=== PATIENT | female | born 1980 | race Caucasian/White ===

== ENCOUNTER 2019-04-18 08:52 | Emergency (ER) | payer BC, SELFPAY ==
[2019-04-18 09:02] VITALS: BMI 31.7
--- NOTE | 2019-04-18 09:04 | ED_ITS ---
Entered by Kathy Villasenor, acting as scribe for Ken Alfonso DO HPI - Head Injury General: Chief complaint: Head Injury Stated complaint: Knot on forehead Time Seen by Provider: 04/18/19 09:12 Source: patient and family Mode of arrival: ambulatory Limitations: no limitations History of Present Illness: HPI Narrative: 39 yo female presents with head injury to forehead. pt states this started 1 hour ago. when checking cows she when to shut the gate and it swung back and hit her in the head. pt has had nausea. pt states when this occurred she seen black and stumbled around and then could see. pt denies any other symptoms at this time. No loss conscious no neck pain no other injuries. 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) Mechanism of Injury: other (cow gate swung back and hit her in the head) Place: home Loss of Consciousness: no Location of injury: frontal Severity: moderate Radiation: none Associated symptoms: Reports nausea Review of Systems General: Reports: 10 or more systems reviewed and unremarkable except in HPI and below Const: Denies: fever, chills, body aches, change in appetite, fatigue or malaise ENMT: Denies: throat pain, ear pain, nasal discharge or nasal congestion Card: Denies: chest pain, edema, shortness of breath on exertion or shortness of breath when lying down Resp: Denies: shortness of breath, productive cough or non-productive cough GI: Reports: nausea : Denies: flank pain, difficulty urinating, painful urination, urinary frequency or urinary urgency Skin/Breast: Denies: rash or itching PFSH ED PFSH: Statuses (acute, chronic, etc) shown below reflect problem list status as previously entered and may not be historically accurate Surgical History History of tubal ligation (Acute) Social History Smoking and tobacco status: never smoked Female Reproductive History: Date of last menstrual period: 04/04/19 Physical Exam Const: COMMON NORMALS: average body habitus, oriented x3 and alert GENERAL APPEARANCE: cooperative, comfortable, well kempt and well developed NUTRITIONAL APPEARANCE: obese ORIENTATION/CONSCIOUSNESS: Yes awake, Yes oriented to person and Yes oriented to place HENMT: COMMON NORMALS: EAC's normal, TM's normal bilaterally and external nose normal HEAD & SCALP: other (Distinct hematoma on the forehead just above the right eyebrow. No laceration no abrasion) NOSE: external nose normal EXTERNAL AUDITORY CANAL: EAC's normal TYMPANIC MEMBRANE: TM's normal bilaterally MOUTH: oral and palatal mucosa normal, lip normal and tongue normal THROAT: posterior oropharynx normal and tonsils normal Eye: COMMON NORMALS: PERRL, EOMs intact bilaterally, conjunctivae normal and no scleral icterus CONJUNCTIVA: Yes conjunctivae normal PUPIL: Yes PERRL Neck/C-Spine: COMMON NORMALS: full ROM, no lymphadenopathy, supple, no meningeal signs and thyroid normal THYROID: thyroid normal and asymmetrical OTHER: C-spine cleared clinically at the bedside no pain with flexion extension rotation to the left or to the right no radicular symptoms. Lymph: LYMPHATIC: no lymphadenopathy noted Resp: COMMON NORMALS: normal respiratory effort, no retractions, no use of accessory muscles and clear to auscultation bilaterally AUSCULTATION: clear to auscultation bilaterally Cardio: COMMON NORMALS: regular rate and regular rhythm RATE: regular rate RHYTHM: regular rhythm HEART SOUNDS: no murmurs GI: COMMON NORMALS: normal to inspection, nondistended, normoactive bowel sounds, soft to palpation and no hepatosplenomegaly PALPATION: Yes soft and Yes no hepatosplenomegaly : COMMON NORMALS: Yes no CVA tenderness BLADDER/KIDNEY EXAM: Yes no CVA tenderness Back/Pelvis: COMMON NORMALS: no CVA tenderness LUMBAR SPINE/LOWER BACK: Yes normal to inspection Extremity: COMMON NORMALS: no clubbing, cyanosis or edema, no calf tenderness and no pedal edema Neuro: COMMON NORMALS: oriented x3 SENSORIUM/ORIENTATION: Yes alert, Yes oriented to person and Yes oriented to place MENINGEAL SIGNS: Yes no meningeal signs Psych: APPEARANCE: Yes well kempt Skin: COMMON NORMALS: no rashes or lesions noted and skin turgor normal GENERAL SKIN EXAM: no rashes or lesions noted and turgor normal Course ED course: No focal neurologic deficits noted. Will discharge home if has any worsening or change return to discuss with him but expect hematoma to forehead to cause a fair amount of bruising in the eyes and swelling as time goes on advised ice if any change or worsening lightheadedness dizziness lethargy or vomiting return immediately. Vital Signs: Vital signs: Vital Signs Temperature 98.0 F 04/18/19 09:05 Pulse Rate 75 04/18/19 09:43 Respiratory Rate 16 04/18/19 09:43 Blood Pressure 168/94 04/18/19 09:43 Pulse Oximetry 99 04/18/19 09:43 Discharge Plan Discharge Patient Disposition: Home, Self-Care Clinical Impression: Closed head injury Condition: Stable Discharge Orders: Discharge Order (Routine); Ordered 04/18/19 Ordered By: Ken Alfonso Referrals: Stevie Jang MD [Primary Care Provider] - Discharge Diet: Advance as tolerated Discharge Activity: Limit activity as instructed Activity Restrictions/Additional Instructions: Minimal exertional activity for the next 3 days. Return to the emergency room for worsening headache nausea or vomiting or excessive tiredness. 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
[2019-04-18 09:05] VITALS: BP 175/123; PULSE 85; RESP 16; TEMP 36.7; O2SAT 99
[2019-04-18 09:43] VITALS: BP 168/94; PULSE 75; RESP 16; O2SAT 99
== END 2019-04-18 09:44 | disposition home or self-care (01) ==
PROVIDERS: Emergency Provider Family Medicine; Family Provider Family Medicine; PCP Family Medicine
DX: S09.8XXA Other specified injuries of head, initial encounter (principal); W20.8XXA Other cause of strike by thrown, projected or falling object, initial encounter
CPT/HCPCS: 99281

== ENCOUNTER → 2021-01-01 11:06 | Outpatient (BNVA) | payer OTHER, SELFPAY | PROVIDERS: Family Provider Family Medicine; PCP Family Medicine; Visit Provider Nurse Practitioner | DX: M25.519 Pain in unspecified shoulder (principal) | CPT/HCPCS: 73030 ==

== ENCOUNTER 2023-05-27 20:51 | Emergency (ER) | payer BC, SELFPAY ==
--- NOTE | 2023-05-27 21:01 | XRR_ITS ---
PROCEDURE INFORMATION: Exam: XR Chest Exam date and time: 05/27/2023 9:20 PM Age: 43 years old Clinical indication: Condition or disease; Patient HX: AMS; Tingling sensation; Vomiting TECHNIQUE: Imaging protocol: Radiologic exam of the chest. Views: 1 view. COMPARISON: CR XR shoulder LT min 2V* [id number] 01/01/2021 11:10 AM FINDINGS: Lungs: Unremarkable. No consolidation. Pleural spaces: Unremarkable. No pleural effusion. No pneumothorax. Heart/Mediastinum: Unremarkable. No cardiomegaly. Bones/joints: Unremarkable. XR/XR chest 1V portable [id number] IMPRESSION: No acute findings.
--- NOTE | 2023-05-27 21:03 | ECG_ITS ---
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 Measurements Intervals [place] Rate: 66 P: 45 DC: 187 QRS: 0 QRSD: 81 T: 14 QT: 396 QTc: 417 Interpretive Statements SINUS RHYTHM MODERATE ST DEPRESSION [0.05+ mV ST DEPRESSION] No previous ECG available for comparison Electronically Signed On 05-29-2023 9:30:13 MILL PLATFORM SUPERVISOR by Tomas Griffith M.D. [id number]
[2023-05-27 21:08] VITALS: BP 109/68; PULSE 64; RESP 17; TEMP 36.4; O2SAT 96; BMI 28.0
[2023-05-27] MEDS: sodium chloride 0.9% 1,000 ML 999 ML IV (21:11)
[2023-05-27] MEDS: ondansetron 2 mg/ML SDV 2 mL 4 MG IVP ×2 (21:12→23:10)
[2023-05-27 21:15] LABS: Basophils % 0.4 %; Eosinophils # 0.1 10^3/uL (0.0-0.8); Eosinophils % 0.5 %; Hematocrit 40.9 % (36-47); Lymphocytes # 3.9 10^3/uL (0.8-4.8); Lymphocytes % 39.1 %; Mean Corpuscular HGB Conc 33.7 g/dL (30-55); Mean Corpuscular Hemoglobin 30.7 pg (27-33); Mean Corpuscular Volume 91.1 fl (85-98); Mean Platelet Volume 9.8 fL (7.4-10.4); Monocytes # 0.4 10^3/uL (0.2-0.9); Monocytes % 3.8 %; Neutrophils # 5.54 10^3/uL (1.8-7.7); Neutrophils % 55.9 %; Nucleated Red Blood Cells % 0 %; Platelet Count 294 10^3/cmm (157-399); Red Blood Count 4.49 10^6/uL (3.85-5.65); Red Cell Distribution Width 12.2 % (12.1-15.1); White Blood Count 9.91 10^3/uL (3.29-11.43)
[2023-05-27 21:25] LABS: Troponin(5th) Baseline < 6 ng/L (0-10)
[2023-05-27 21:26] LABS: Alanine Aminotransferase 40 U/L (0-33); Albumin Level 4.6 g/dL (3.5-5.2); Alkaline Phosphatase 80 U/L (35-105); Anion Gap 16.9 (5-19); Aspartate Amino Transferase 28 U/L (0-32); Blood Urea Nitrogen 18 mg/dL (6-20); Calcium 9.3 mg/dL (8.5-10.5); Carbon Dioxide 25 mmol/L (22-29); Chloride 100 mmol/L (98-107); Creatinine Clr Calc Pharmacy 92.4553; Globulin 2.6 g/dL (1.3-4.6); Glomerular Filtration Rate 67.7 mL/min (90-130); Glucose 129 mg/dL (65-115); Osmolality Calculated 290 mOsm/kg (285-295); Potassium 3.9 mmol/L (3.5-5.1); Sodium 138 mmol/L (136-145); Total Bilirubin 0.2 mg/dL (0.15-1.2); Total Protein 7.2 g/dL (6.6-8.7)
[2023-05-27 21:30] LABS: Alcohol Level < 10 mg/dL (0-10)
[2023-05-27 21:54] LABS: HCG Qualitative Urine. Negative (Negative)
--- NOTE | 2023-05-27 21:54 | ED_ITS ---
Documented by User: Javier DO Andrew 05/27/23 22:10 HPI - Altered Mental Status 2 General: Chief Complaint: Altered Mental Status Stated Complaint: unresponsive Time Seen by Provider: 05/27/23 21:01 History of Present Illness: The patient presents to the ER with a chief complaint of vomiting, lightheadedness, and near syncope. She reports feeling nauseous and lightheaded prior to the episode. The patient denies any alcohol consumption or taking any other medications today. She has a history of anemia and fatty liver. The patient mentions having a heavy menstrual period, which is normal for her. She states that she was in her normal state of health before feeling nauseous and lightheaded. The patient denies any loss of consciousness during the episode but reports a previous episode of passing out 17 years ago due to dehydration. The patient admits to possibly being dehydrated, as she has not been drinking as much as she normally does. She also reports having dry lips and mouth. Review of Systems 2 General: Reports: 10 or more systems reviewed and unremarkable except in HPI and below Const: Denies: fever(s) Card: Denies: palpitations or edema Resp: Denies: dyspnea Skin/Breast: Denies: rash PFSH ED 2 PFSH: Surgical History History of tubal ligation Social History Smoking and tobacco/nicotine status: never used tobacco/nicotine Physical Exam 2 Const: COMMON NORMALS: no acute distress, patient oriented x3, healthy appearing, alert and well nourished OTHER: Patient's eyes were closed throughout the exam, but she responded normally and was never unconscious. HENMT: COMMON NORMALS: normocephalic HEAD & SCALP: normocephalic Neck/C-Spine: COMMON NORMALS: full ROM and supple Resp: COMMON NORMALS: normal respiratory effort, No retractions and clear to auscultation bilaterally AUSCULTATION: clear to auscultation bilaterally Cardio: COMMON NORMALS: regular rate, regular rhythm, No gallops present (Cardio) and No murmurs present (Cardio) RATE: regular rate RHYTHM: r egular rhythm GI: COMMON NORMALS: Soft to palpation and non-tender PALPATION: Yes Soft to palpation Extremity: GENERAL: Yes normal exam except as noted Neuro: COMMON NORMALS: patient oriented x3 SENSORIUM/ORIENTATION: Yes alert Skin: COMMON NORMALS: no rashes or lesions noted GENERAL SKIN EXAM: no rashes or lesions noted Course 2 Vital Signs: Vital signs: Vital Signs Temperature 97.6 F 05/27/23 21:08 Pulse Rate 74 05/27/23 23:17 Respiratory Rate 14 05/27/23 23:17 Blood Pressure 127/74 05/27/23 23:17 Pulse Oximetry 100 05/27/23 23:17 Oxygen Delivery Me thod Room Air 05/27/23 22:26 MDM - Altered Mental Status Medical Decision Making 43-year-old female present emergency department for altered mental status. Upon arrival in the emergency department she was alert and oriented x 4. Lab Data 05/27/23 20:56 05/27/23 20:56 Radiology Impressions Chest X-Ray 05/27/23 21:01 IMPRESSION: No acute findings. Head/Neck CTA 05/27/23 22:11 IMPRESSION: No large vessel stenosis or occlusion. IMPRESSION: No stenosis or occlusion. REFERENCES: NASCET CRITERIA. The degree of stenosis in the cervical segment of the internal carotid artery is based on NASCET criteria. Normal is no stenosis. Mild is less than 50% stenosis. Moderate is 50-69% stenosis. Severe is 70% to 99% stenosis. Total occlusion is no detectable patent lumen. Laboratory Results WBC 9.91 10^3/uL (3.29-11.43) 05/27/23 20:56 RBC 4.49 10^6/uL (3.85-5.65) 05/27/23 20:56 Hgb 13.80 g/dL (11.27-16.99) 05/27/23 20:56 Hct 40.9 % (36-47) 05/27/23 20:56 MCV 91.1 fl (85-98) 05/27/23 20:56 MCH 30.7 pg (27-33) 05/27/23 20:56 MCHC 33.7 g/dL (30-55) 05/27/23 20:56 RDW 12.2 % (12.1-15.1) 05/27/23 20:56 Plt Count 294 10^3/cmm (157-399) 05/27/23 20:56 MPV 9.8 fL (7.4-10.4) 05/27/23 20:56 Neut % (Auto) 55.9 % 05/27/23 20:56 Lymph % (Auto) 39.1 % 05/27/23 20:56 [place] % (Auto) 3.8 % 05/27/23 20:56 Eos % (Auto) 0.5 % 05/27/23 20:56 Baso % (Auto) 0.4 % 05/27/23 20:56 Neut # (Auto) 5.54 10^3/uL (1.8-7.7) 05/27/23 20:56 Lymph # (Auto) 3.9 10^3/uL (0.8-4.8) 05/27/23 20:56 [place] # (Auto) 0.4 10^3/uL (0.2-0.9) 05/27/23 20:56 Eos # (Auto) 0.1 10^3/uL (0.0-0.8) 05/27/23 20:56 Baso # (Auto) 0.0 10^3/uL (0.0-0.1) 05/27/23 20:56 Nucleated RBC % (auto) 0 % 05/27/23 20:56 Nucleated RBCs # 0.0 /100WBC 05/27/23 20:56 Sodium 138 mmol/L (136-145) 05/27/23 20:56 Potassium 3.9 mmol/L (3.5-5.1) 05/27/23 20:56 Chloride 100 mmol/L (98-107) 05/27/23 20:56 Carbon Dioxide 25 mmol/L (22-29) 05/27/23 20:56 Anion Gap 16.9 (5-19) 05/27/23 20:56 BUN 18 mg/dL (6-20) 05/27/23 20:56 Creatinine 0.9 mg/dL (0.5-0.9) 05/27/23 20:56 GFR Calculation 67.7 mL/min (90-130) L 05/27/23 20:56 Glucose 129 mg/dL (65-115) H 05/27/23 20:56 Calculated Osmolality 290 mOsm/kg (285-295) 05/27/23 20:56 Calcium 9.3 mg/dL (8.5-10.5) 05/27/23 20:56 Total Bilirubin 0.2 mg/dL (0.15-1.2) 05/27/23 20:56 AST 28 U/L (0-32) 05/27/23 20:56 ALT 40 U/L (0-33) H 05/27/23 20:56 Alkaline Phosphatase 80 U/L (35-105) 05/27/23 20:56 Troponin T Baseline < 6 ng/L (0-10) 05/27/23 20:56 Troponin T 120 Minute 6.00 ng/L (0-10) 05/27/23 22:54 Delta Troponin T 0.73099 ABS# (0-10) 05/27/23 22:54 Total Protein 7.2 g/dL (6.6-8.7) 05/27/23 20:56 Albumin 4.6 g/dL (3.5-5.2) 05/27/23 20:56 Globulin 2.6 g/dL (1.3-4.6) 05/27/23 20:56 HCG, Qual Negative (Negative) 05/27/23 21:46 Urine Color Yellow (Yellow) 05/27/23 21:46 Urine Appearance Clear (CLEAR) 05/27/23 21:46 Urine pH 6 (5-7) 05/27/23 21:46 Ur Specific [place] 1.020 (1.005-1.030) 05/27/23 21:46 Urine Protein Neg (Negative) 05/27/23 21:46 Urine Glucose (UA) Norm (Normal) 05/27/23 21:46 Urine Ketones Negative (Negative) 05/27/23 21:46 Urine Blood Neg (Negative) 05/27/23 21:46 Urine Nitrate Negative (Negative) 05/27/23 21:46 Urine Bilirubin Neg (Negative) 05/27/23 21:46 Urine Urobilinogen Norm mg/dL (Negative) 05/27/23 21:46 Ur Leukocyte Esterase Negative (Negative) 05/27/23 21:46 Urine Opiates Screen Negative ng/mL (Negative) 05/27/23 21:46 Ur Barbiturates Screen Negative ng/mL (Negative) 03/02/24 21:46 Ur Phencyclidine Scrn Negative ng/mL (Negative) 05/27/23 21:46 Ur Amphetamines Screen Negative ng/mL (Negative) 05/27/23 21:46 U Benzodiazepines Scrn Negative ng/mL (Negative) 05/27/23 21:46 Urine Cocaine Screen Negative ng/mL (Negative) 05/27/23 21:46 U Marijuana (THC) Screen Negative ng/mL (Negative) 05/27/23 21:46 Ethyl Alcohol < 10 mg/dL (0-10) 05/27/23 20:56 All radiology interpretation(s) finalized by discharge Discharge Plan Discharge Patient Disposition: Home Clinical Impression: Syncope Condition: Stable Prescriptions: New ondansetron 4 mg tablet,disintegrating 4 mg PO Q6H PRN (Reason: nausea and vomiting) Qty: 14 0RF Ativan 0.5 mg tablet 0.5 mg PO Q8H PRN (Reason: anxiety) Qty: 7 0RF No Action metoprolol succinate 50 mg capsule,sprinkle,ER 24hr 50 mg PO DAILY sertraline 50 mg tablet 50 mg PO DAILY bupropion HCl [Wellbutrin SR] 150 mg tablet sustained-release 12 hr 150 mg PO DAILY Discharge Orders: Discharge ED (Routine); Ordered 05/27/23 Ordered By: Santo Bowens Referrals: Stevie Jang MD [Primary Care Provider] - 1-3 days Patient Instructions: Syncope (ED), Opioid Safety, Pain Management Activity Restrictions/Additional Instructions: Return for repeated episodes of syncope or passing out, vomiting liquids or medications despite treatment, fever, further alteration in mental status, or any other concerning symptoms. Take nausea medication scheduled for the next 24 hours, then as needed to follow. See your doctor this week. Coding Level of Care Code ED Placing Judge for Chg Fwd Documented by User: Santo Bowens DO 05/28/23 19:29 HPI - Altered Mental Status 2 General: Chief Complaint: Altered Mental Status Stated Complaint: unresponsive Time Seen by Provider: 05/27/23 21:01 [facility] ED 2 [facility]: Surgical History History of tubal ligation Social History Smoking and tobacco/nicotine status: never used tobacco/nicotine Course 2 Vital Signs: Vital signs: Vital Signs Temperature 97.6 F 05/27/23 21:08 Pulse Rate 74 05/27/23 23:17 Respiratory Rate 14 05/27/23 23:17 Blood Pressure 127/74 05/27/23 23:17 Pulse Oximetry 100 05/27/23 23:17 Oxygen Delivery Me thod Room Air 05/27/23 22:26 MDM - Altered Mental Status Medical Decision Making 43-year-old female present emergency department for altered mental status. Upon arrival in the emergency department she was alert and oriented x 4. 43-year-old female checked out at shift change. She was pending CTA at that point. Her laboratory is not remarkable. Urine drug screen is negative. Alcohol is negative. Chest x-ray is negative. CTA of the head shows a normal brain with no stenosis or occlusion. Troponin is normal x 2. She feels much improved at this point. She will be allowed discharge. To return for any return of symptoms. Lab Data 05/27/23 20:56 05/27/23 20:56 Radiology Impressions Chest X-Ray 05/27/23 21:01 IMPRESSION: No acute findings. Head/Neck CTA 05/27/23 22:11 IMPRESSION: No large vessel stenosis or occlusion. IMPRESSION: No stenosis or occlusion. REFERENCES: NASCET CRITERIA. The degree of stenosis in the cervical segment of the internal carotid artery is based on NASCET criteria. Normal is no stenosis. Mild is less than 50% stenosis. Moderate is 50-69% stenosis. Severe is 70% to 99% stenosis. Total occlusion is no detectable patent lumen. Laboratory Results WBC 9.91 10^3/uL (3.29-11.43) 05/27/23 20:56 RBC 4.49 10^6/uL (3.85-5.65) 05/27/23 20:56 Hgb 13.80 g/dL (11.27-16.99) 05/27/23 20:56 Hct 40.9 % (36-47) 05/27/23 20:56 MCV 91.1 fl (85-98) 05/27/23 20:56 MCH 30.7 pg (27-33) 05/27/23 20:56 MCHC 33.7 g/dL (30-55) 05/27/23 20:56 RDW 12.2 % (12.1-15.1) 05/27/23 20:56 Plt Count 294 10^3/cmm (157-399) 05/27/23 20:56 MPV 9.8 fL (7.4-10.4) 05/27/23 20:56 Neut % (Auto) 55.9 % 05/27/23 20:56 Lymph % (Auto) 39.1 % 05/27/23 20:56 [place] % (Auto) 3.8 % 05/27/23 20:56 Eos % (Auto) 0.5 % 05/27/23 20:56 Baso % (Auto) 0.4 % 05/27/23 20:56 Neut # (Auto) 5.54 10^3/uL (1.8-7.7) 05/27/23 20:56 Lymph # (Auto) 3.9 10^3/uL (0.8-4.8) 05/27/23 20:56 [place] # (Auto) 0.4 10^3/uL (0.2-0.9) 05/27/23 20:56 Eos # (Auto) 0.1 10^3/uL (0.0-0.8) 05/27/23 20:56 Baso # (Auto) 0.0 10^3/uL (0.0-0.1) 05/27/23 20:56 Nucleated RBC % (auto) 0 % 05/27/23 20:56 Nucleated RBCs # 0.0 /100WBC 05/27/23 20:56 Sodium 138 mmol/L (136-145) 05/27/23 20:56 Potassium 3.9 mmol/L (3.5-5.1) 05/27/23 20:56 Chloride 100 mmol/L (98-107) 05/27/23 20:56 Carbon Dioxide 25 mmol/L (22-29) 05/27/23 20:56 Anion Gap 16.9 (5-19) 05/27/23 20:56 BUN 18 mg/dL (6-20) 05/27/23 20:56 Creatinine 0.9 mg/dL (0.5-0.9) 05/27/23 20:56 GFR Calculation 67.7 mL/min (90-130) L 05/27/23 20:56 Glucose 129 mg/dL (65-115) H 05/27/23 20:56 Calculated Osmolality 290 mOsm/kg (285-295) 05/27/23 20:56 Calcium 9.3 mg/dL (8.5-10.5) 05/27/23 20:56 Total Bilirubin 0.2 mg/dL (0.15-1.2) 05/27/23 20:56 AST 28 U/L (0-32) 05/27/23 20:56 ALT 40 U/L (0-33) H 05/27/23 20:56 Alkaline Phosphatase 80 U/L (35-105) 05/27/23 20:56 Troponin T Baseline < 6 ng/L (0-10) 05/27/23 20:56 Troponin T 120 Minute 6.00 ng/L (0-10) 05/27/23 22:54 Delta Troponin T 0.30519 ABS# (0-10) 05/27/23 22:54 Total Protein 7.2 g/dL (6.6-8.7) 05/27/23 20:56 Albumin 4.6 g/dL (3.5-5.2) 05/27/23 20:56 Globulin 2.6 g/dL (1.3-4.6) 05/27/23 20:56 HCG, Qual Negative (Negative) 05/27/23 21:46 Urine Color Yellow (Yellow) 05/27/23 21:46 Urine Appearance Clear (CLEAR) 05/27/23 21:46 Urine pH 6 (5-7) 05/27/23 21:46 Ur Specific [place] 1.020 (1.005-1.030) 05/27/23 21:46 Urine Protein Neg (Negative) 05/27/23 21:46 Urine Glucose (UA) Norm (Normal) 05/27/23 21:46 Urine Ketones Negative (Negative) 05/27/23 21:46 Urine Blood Neg (Negative) 05/27/23 21:46 Urine Nitrate Negative (Negative) 05/27/23 21:46 Urine Bilirubin Neg (Negative) 05/27/23 21:46 Urine Urobilinogen Norm mg/dL (Negative) 05/27/23 21:46 Ur Leukocyte Esterase Negative (Negative) 05/27/23 21:46 Urine Opiates Screen Negative ng/mL (Negative) 05/27/23 21:46 Ur Barbiturates Screen Negative ng/mL (Negative) 05/27/23 21:46 Ur Phencyclidine Scrn Negative ng/mL (Negative) 05/27/23 21:46 Ur Amphetamines Screen Negative ng/mL (Negative) 05/27/23 21:46 U Benzodiazepines Scrn Negative ng/mL (Negative) 05/27/23 21:46 Urine Cocaine Screen Negative ng/mL (Negative) 05/27/23 21:46 U Marijuana (THC) Screen Negative ng/mL (Negative) 05/27/23 21:46 Ethyl Alcohol < 10 mg/dL (0-10) 05/27/23 20:56 Discharge Plan Discharge Patient Disposition: Home Clinical Impression: Syncope Condition: Stable Prescriptions: New ondansetron 4 mg tablet,disintegrating 4 mg PO Q6H PRN (Reason: nausea and vomiting) Qty: 14 0RF Ativan 0.5 mg tablet 0.5 mg PO Q8H PRN (Reason: anxiety) Qty: 7 0RF No Action metoprolol succinate 50 mg capsule,sprinkle,ER 24hr 50 mg PO DAILY sertraline 50 mg tablet 50 mg PO DAILY bupropion HCl [Wellbutrin SR] 150 mg tablet sustained-release 12 hr 150 mg PO DAILY Discharge Orders: Discharge ED (Routine); Ordered 05/27/23 Ordered By: Santo Bowens Referrals: Stevie Jang MD [Primary Care Provider] - 1-3 days Patient Instructions: Syncope (ED), Opioid Safety, Pain Management Activity Restrictions/Additional Instructions: Return for repeated episodes of syncope or passing out, vomiting liquids or medications despite treatment, fever, further alteration in mental status, or any other concerning symptoms. Take nausea medication scheduled for the next 24 hours, then as needed to follow. See your doctor this week. Coding Level of Care Code ED Placing Judge for Birgit Pennington
[2023-05-27 21:55] VITALS: BP 133/78; PULSE 73; RESP 18; O2SAT 100
[2023-05-27 21:58] LABS: Add Urine Microscopic? NO; Charge for UA Resulting for Rev
[2023-05-27 22:00] LABS: Bilirubin Urine Neg (Negative); Blood Urine Neg (Negative); Glucose Urine UA Norm (Normal); Ketones Urine Negative (Negative); Leukocyte Esterase Urine Negative (Negative); Nitrate Urine Negative (Negative); Protein Urine Neg (Negative); Urine Appearance Clear (CLEAR); Urine Color Yellow (Yellow); Urobilinogen Urine Norm (Negative); pH Urine 6 (5-7)
[2023-05-27 22:09] LABS: Amphetamines Screen Urine Negative (Negative); Barbiturates Screen Urine Negative (Negative); Benzodiazepines Screen Urine Negative (Negative); Cocaine Screen Urine Negative (Negative); Opiate Screen Urine Negative (Negative); PCP Screen Urine Negative (Negative); THC Screen Urine Negative (Negative)
--- NOTE | 2023-05-27 22:11 | CTR_ITS ---
PROCEDURE INFORMATION: Exam: CTA Head With Contrast, Arteriography Exam date and time: 05/27/2023 10:12 PM Age: 43 years old Clinical indication: Other: Neck pain left-sided paresthesias syncope TECHNIQUE: Imaging protocol: Computed tomographic angiography of the head with contrast. Exam focused on the arteries. 3D rendering (Not supervised by radiologist): MIP and/or 3D reconstructed images were created by the technologist. Radiation optimization: All CT scans at this facility use at least one of these dose optimization techniques: automated exposure control; mA and/or kV adjustment per patient size (includes targeted exams where dose is matched to clinical indication); or iterative reconstruction. Contrast material: OMNI 350; Contrast volume: 100 ml; Contrast route: INTRAVENOUS (IV); COMPARISON: No relevant prior studies available. RADIATION DOSE METRICS: Total DLP (mGy-cm): 1089 FINDINGS: ANTERIOR CIRCULATION: Right internal carotid artery: Intracranial segment is patent with no significant stenosis. No aneurysm. Right middle cerebral artery: No occlusion or significant stenosis. No aneurysm. Right anterior cerebral artery: No occlusion or significant stenosis. No aneurysm. Left internal carotid artery: Intracranial segment is patent with no significant stenosis. No aneurysm. Left middle cerebral artery: No occlusion or significant stenosis. No aneurysm. Left anterior cerebral artery: No occlusion or significant stenosis. No aneurysm. POSTERIOR CIRCULATION: Right vertebral artery: No occlusion or significant stenosis. No aneurysm. Left vertebral artery: No occlusion or significant stenosis. No aneurysm. Basilar artery: No occlusion or significant stenosis. No aneurysm. Right posterior cerebral artery: No occlusion or significant stenosis. No aneurysm. Left posterior cerebral artery: No occlusion or significant stenosis. No aneurysm. Brain: No definite mass, mass effect, or midline shift. No intracranial hemorrhage. Cerebral ventricles: No ventriculomegaly. Bones/joints: Unremarkable. No acute fracture. Soft tissues: Unremarkable. PROCEDURE INFORMATION: Exam: CTA Neck With Contrast Exam date and time: 05/27/2023 10:12 PM Age: 43 years old Clinical indication: Other: Neck pain left-sided paresthesias syncope TECHNIQUE: Imaging protocol: Computed tomographic angiography of the neck with contrast. Exam focused on the cervical segments of the vasculature. 3D rendering (Not supervised by radiologist): MIP and/or 3D reconstructed images were created by the technologist. Radiation optimization: All CT scans at this facility use at least one of these dose optimization techniques: automated exposure control; mA and/or kV adjustment per patient size (includes targeted exams where dose is matched to clinical indication); or iterative reconstruction. Contrast material: OMNI 350; Contrast volume: 100 ml; Contrast route: INTRAVENOUS (IV); COMPARISON: CR (CHEST, ) 05/27/2023 9:20 PM RADIATION DOSE METRICS: Total DLP (mGy-cm): 1089 FINDINGS: Right common carotid artery: No stenosis. No dissection or occlusion. Right internal carotid artery: No stenosis of the extracranial segment. No dissection or occlusion. Right external carotid artery: No occlusion or stenosis of the origin. Left common carotid artery: No stenosis. No dissection or occlusion. Minimal atherosclerotic calcifications. Left internal carotid artery: No stenosis of the extracranial segment. No dissection or occlusion. Left external carotid artery: No occlusion or stenosis of the origin. Right vertebral artery: No stenosis. No dissection or occlusion. Left vertebral artery: No stenosis. No dissection or occlusion. Soft tissues: Normal. No significant soft tissue swelling. Bones/joints: No acute fracture. CT/CT angio headneck* [id number] IMPRESSION: No large vessel stenosis or occlusion. IMPRESSION: No stenosis or occlusion. REFERENCES: NASCET CRITERIA. The degree of stenosis in the cervical segment of the internal carotid artery is based on NASCET criteria. Normal is no stenosis. Mild is less than 50% stenosis. Moderate is 50-69% stenosis. Severe is 70% to 99% stenosis. Total occlusion is no detectable patent lumen.
[2023-05-27 22:26] VITALS: BP 181/130; PULSE 86; RESP 20; O2SAT 100
[2023-05-27] MEDS: iohexol 350 mg/mL 500 mL Btl (per mL) IV (22:32)
[2023-05-27 23:17] VITALS: BP 127/74; PULSE 74; RESP 14; O2SAT 100
[2023-05-27 23:22] LABS: Troponin 5 2HR Delta 0.00001 ABS# (0-10)
--- NOTE | 2023-05-27 23:29 | ECG_ITS ---
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 Measurements Intervals [place] Rate: 73 P: 56 MN: 188 QRS: -9 QRSD: 90 T: 5 QT: 395 QTc: 437 Interpretive Statements SINUS RHYTHM Compared to ECG 05/27/2023 20:54:32 ST (T wave) deviation no longer present Electronically Signed On 05-29-2023 9:38:25 [employer]Y OPERATOR HELPER by Tomas Griffith M.D. [email or web address] Solarturning point mature adult care unitVigilentvan [id number]
== END 2023-05-28 00:55 | disposition home or self-care (01) ==
PROVIDERS: Emergency Provider General Practice; PCP Family Medicine
DX: R55 Syncope and collapse (principal)
CPT/HCPCS: 36415; 70496; 70498; 71045; 71046; 80053; 80306; 80307; 81003; 81025; 84484; 85025; 93005; 96361; 96374; 96376; 99285; J2405; J7030; Q9967